=== PATIENT | female | born 1965 | race Caucasian/White ===

== ENCOUNTER 2016-12-17 09:04 | Emergency (ER) | payer BC, OTHER ==
--- NOTE | ~2016-12-17 | ER ---
PATIENT'S NAME: LRJUDYMILAN Carlos [facility] AGE: 51 Y [address] ROOM: [place], [place] [address] LOCATION: [facility] ADMIT DATE: 12/17/2016 ER/Outpatient Report DISCHARGE DATE: 12/17/2016 FAMILY PHYSICIAN: Justin Duran MD ATTENDING PHYSICIAN: Cristian Jett Admission date and time documented on the medical record. I saw the patient at 0920 hours. CHIEF COMPLAINT: Right knee pain. HISTORY OF PRESENT ILLNESS: The patient is a 51-year-old female who presented to the emergency room with right knee pain. She has pain mainly in the lateral joint line. It is about 6/10. She has been having some problems with pain in her right knee off and on over the past 2 weeks. 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 This morning, she crossed her right leg over her left, and she had a pop and intense pain in the lateral aspect of her right knee. Had problems bearing weight on it. Ice and elevated it, but decided to come to the emergency room for evaluation. No other injuries. No other complaints. No fall. No major trauma. She did injure her right knee about 20 years ago; however, has had no operative procedures on the knee. No other injuries. HOME MEDICATIONS: See attached medication list. ALLERGIES: SULFA. SOCIAL HISTORY: Nonsmoker and nondrinker. SIGNIFICANT PAST MEDICAL HISTORY: Depression, anxiety, degenerative osteoarthritis, headaches, non-insulin- dependent diabetes mellitus, and dyslipidemia. OPERATIONS: Open reduction and internal fixation of right hand fracture, D and C, cystoscopy, and colonoscopy. REVIEW OF SYSTEMS: All systems reviewed by me are negative with the exception of those discussed in the History of Present Illness. PAT[facility] AGE: 51 Y [address] ROOM: [place], [place] [address] LOCATION: [facility] ADMIT DATE: 12/17/2016 ER/Outpatient Report DISCHARGE DATE: 12/17/2016 FAMILY PHYSICIAN: Justin Duran MD ATTENDING PHYSICIAN: Cristian Jett PHYSICAL EXAMINATION: VITAL SIGNS: Temperature 99, pulse 88, respirations 20, blood pressure 188/84, and O2 saturation on room air is 96%. EXTREMITIES: On examination of the right knee, there is no swelling. No joint effusion. Patella moves well. There is no tenderness over the inferior or superior patellar tendon. Ligaments appear to be stable. She has tenderness over the lateral joint line. Minimal tenderness over the medial joint line. Anterior drawer sign is negative. DIAGNOSTIC DATA: X-ray of the right knee showed no fracture or dislocation. Joint spaces are wide without collapsing. No degenerative changes. We will review x-ray with the radiologist. IMPRESSION: Right knee pain, etiology uncertain. Suspect that she may have a lateral meniscal injury. PLAN: I did discuss the patient with Dr. Huitron, orthopedic surgeon. We dismissed the patient from the emergency department. She is to follow up with Dr. Huitron for consultative exam. Minimal if nonweightbearing. Ice, elevation. Ibuprofen or Aleve as needed for pain. Follow up with personal physician as needed. Discussion ensued with the patient regarding my findings and recommendations, she understands. CRISTIAN JETT MD SDS/modl /[id number] d: 12/17/16 1457 t: 12/17/16 1739, OUTPATIENT REPORT
[~2016-12-17 09:04] MED LIST: GLUCOPHAGE XR500 M1 PO; MIRALAX17 GM PO; NEURONTIN300 MG PO; NORTREL PO; NUCYNTA100 MG PO; PAXIL10 MG PO; PRAVASTATIN SOD10 MG PO; PROTONIX40 MG PO; SURFAK240 MG PO; VALIUM5 MG PO
== END 2016-12-17 10:04 | disposition disaster alternative care site (69) ==
LOC: GACC 09:04
DX: M25.561 Pain in right knee (principal); F32.9 Major depressive disorder, single episode, unspecified; F41.9 Anxiety disorder, unspecified; M19.90 Unspecified osteoarthritis, unspecified site; E11.9 Type 2 diabetes mellitus without complications; E78.5 Hyperlipidemia, unspecified; Z88.2 Allergy status to sulfonamides